=== PATIENT | male | born 1990 | race Caucasian/White ===

== ENCOUNTER 2016-11-11 09:26 | Emergency (ER) | payer OTHER ==
[~2016-11-11] VITALS: Ht 177.8 cm; Wt 93.8 kg
[2016-11-11 09:31] VITALS: TEMP 36.7; Ht 177.8 cm; Wt 93.8 kg
[2016-11-11] MEDS ORDERED: DIPHTHERIA/TETANUS/PERTUSSIS 0.5 ML SYR/VIAL IM. ONE (10:15)
--- NOTE | 2016-11-11 10:20 | EMERGENCY ROOM VISIT NOTE ---
ED Visit Note First contact with patient: 09:46 CHIEF COMPLAINT: Animal bite HISTORY OF PRESENT ILLNESS: This 26-year-old male patient presents to the emergency department annular after they sustained a dog bite to the right hand, specifically third and fourth fingers. The patient states the dog was on a leash and he is approached the dog and it bit him. This occurred at work while he was at a client's house. The patient does not know the vaccination status of the dog but states the dog was on a leash, at the owners house and the clinical dietetic technician has had the dog for some time. The patient complains of mild 3/10 pain at the site of the injury. Pain is worse with movement. Tetanus status is possibly not up to date. REVIEW OF SYSTEMS: A 6 system review of systems was completed with positives and pertinent negatives listed in the HPI. ALLERGIES: Seasonal MEDICATIONS: None PMH: None PHYSICAL EXAM: Vital Signs reviewed, see Nurse's notes, vital signs stable. GENERAL: This is a 26-year-old male, awake, alert, well appearing, no acute distress. Non toxic in appearance. MUSCULOSKELETAL: Examination of the right hand reveals a puncture type of wound. There are 2 punctures to the right fourth finger and one superficial puncture to the right third finger. There is minimal swelling on inspection. Palpation of the fourth finger reveals mild tenderness. No significant crepitus or warmth noted. No joint space, tendon, or vascular involvement. Distal pulses intact. SKIN: No signs of infection. NEURO: No sensory or motor deficits noted over all dermatomes and myotomes tested. EMERGENCY DEPARTMENT COURSE AND DECISION MAKING: I examined the patient. The patient presented with an isolated bite wound as described as above. By the history, there is no immediate concern for rabies exposure. No signs of infection on examination. The patient should return if it turns out the dog's vaccinations are not up-to-date and it cannot be quarantined for 10 days or if it dies in the next 10 days. ER Treatment: Department of Health paperwork completed. Tetanus booster was given. Antibiotic prophylaxis is indicated. The area was cleansed with Betadine and sterile saline and dressed with bacitracin and a bandage. X-ray of the hand was obtained and reviewed by myself and radiology. There is no evidence for fracture or obvious foreign body. Discharge instructions reviewed. Discharged in stable condition. Current/Historical Medications Scheduled Amoxicillin & Pot Clavulanate (Augmentin 875-125 mg), 1 TAB PO BID Allergies Uncoded Allergies: SEASONAL (Allergy, Mild, , 11/11/16) Vital Signs Date Time Temp Pulse Resp B/P Pulse Ox O2 Delivery O2 Flow Rate FiO2 11/11/16 11:10 75 16 132/87 97 11/11/16 09:31 36.7 75 16 132/87 97 Room Air Medications Administered Medications (Trade) Dose Ordered Sig/Paul Route Start Time Stop Time Status Last Admin Dose Admin Diphtheria/ Pertussis/Tetanus Vacc (Adacel Inj) 0.5 ml ONCE ONCE IM. 11/11/16 10:15 11/11/16 10:16 DC 11/11/16 10:37 0.5 ML Departure Information Impression Primary Impression: Dog bite Additional Impression: Work related injury Dispostion Home / Self-Care Condition GOOD Prescriptions Amoxicillin & Pot Clavulanate (Augmentin 875-125 mg) 1 Tab Tab 1 TAB PO BID for 10 Days, #20 TAB Prov: Dasia Patel PA-C 11/11/16 Referrals No Doctor, Assigned (PCP) Patient Instructions ED Bite Dog, My [facility] [place] [employer] Additional Instructions Keep the puncture wounds clean and dry Augmentin every 12 hours for 10 days Return to the emergency department with any redness, swelling, warmth, fever, drainage of pus, inability to move the finger Return if the dog dies or cannot be quarantined for 10 days in which case you would need rabies vaccination series Problem Qualifiers
[2016-11-11] MEDS ORDERED: AMOX875T PO (10:27)
--- NOTE | 2016-11-11 10:37 | DIAGNOSTIC IMAGING REPORT ---
RIGHT HAND MIN 3 VIEWS ROUTINE CLINICAL HISTORY: Right hand pain status post trauma. Dog bite. COMPARISON: None. DISCUSSION: No fractures or dislocations are visualized. No radiopaque foreign bodies are visualized. IMPRESSION: No fractures identified. No radiopaque foreign bodies are visualized. Electronically signed by: Gregg Johnson M.D. 11/11/2016 10:36 AM Dictated Date/Time: 11/11/2016 10:33 AM
[2016-11-11 11:10] VITALS: BP 132/87; PULSE 75; O2SAT 97
== END 2016-11-11 11:10 | disposition home or self-care (01) ==
LOC: C.EDB 09:27 → C.EDC 11:10
DX: S61.252A Open bite of right middle finger without damage to nail, initial encounter (principal); S61.254A Open bite of right ring finger without damage to nail, initial encounter; W54.0XXA Bitten by dog, initial encounter; Y99.0 Civilian activity done for income or pay; Y92.89 Other specified places as the place of occurrence of the external cause